=== PATIENT | male | born 1970 | race Asian ===

== ENCOUNTER → 2017-08-15 | Outpatient (CLI) | payer MEDICAID ==
[~2017-08-15] VITALS: Ht 177.8 cm; Wt 91.0 kg
[~2017-08-15] MED LIST: LIDOCAINE HCL 2% 5 ML JELLY TP ONE
[2017-08-15 09:46] VITALS: BP 150/90
== END | disposition home or self-care (01) ==
LOC: HBOWC 09:29
PROVIDERS: ATTEND Surgery Plastic and Reconstructive Surgery
DX: T25.332A Burn of third degree of left toe(s) (nail), initial encounter (principal); S91.105A Unspecified open wound of left lesser toe(s) without damage to nail, initial encounter; X17.XXXA Contact with hot engines, machinery and tools, initial encounter; Y93.55 Activity, bike riding; Y92.89 Other specified places as the place of occurrence of the external cause; Y99.8 Other external cause status; X58.XXXA Exposure to other specified factors, initial encounter; Y93.89 Activity, other specified
CPT/HCPCS: 97597; G0463

== ENCOUNTER → 2017-09-06 | Outpatient (CLI) | payer MEDICAID ==
[~2017-09-06] MED LIST changes: -LIDOCAINE HCL 2% 5 ML JELLY TP ONE; +LIDOCAINE HCL 4% 50 ML SOLUTION TP ONE
[2017-09-06 10:41] VITALS: BP 152/97
[2017-09-06 11:55] VITALS: BP 143/89
== END | disposition home or self-care (01) ==
LOC: HBOWC 10:07
PROVIDERS: ATTEND Emergency Medicine
DX: T25.332D Burn of third degree of left toe(s) (nail), subsequent encounter (principal); T31.0 Burns involving less than 10% of body surface; S91.105D Unspecified open wound of left lesser toe(s) without damage to nail, subsequent encounter; X58.XXXD Exposure to other specified factors, subsequent encounter; X17.XXXD Contact with hot engines, machinery and tools, subsequent encounter
CPT/HCPCS: 11042; 87070; 87147; 87205

== ENCOUNTER → 2017-09-13 | Outpatient (CLI) | payer MEDICAID ==
[~2017-09-13] MED LIST changes: +LIDOCAINE HCL 2% 5 ML JELLY TP ONE; -LIDOCAINE HCL 4% 50 ML SOLUTION TP ONE
[2017-09-13 11:22] VITALS: BP 148/90
== END | disposition home or self-care (01) ==
LOC: HBOWC 10:30
PROVIDERS: ATTEND Emergency Medicine
DX: T25.332D Burn of third degree of left toe(s) (nail), subsequent encounter (principal); S91.102D Unspecified open wound of left great toe without damage to nail, subsequent encounter; X08.8XXD Exposure to other specified smoke, fire and flames, subsequent encounter
CPT/HCPCS: 11042

== ENCOUNTER → 2017-09-29 | Outpatient (CLI) | payer SELFPAY ==
[2017-09-29 12:13] VITALS: BP 161/96
== END | disposition home or self-care (01) ==
LOC: HBOWC 11:57
PROVIDERS: ATTEND Nurse Practitioner Adult Health
DX: T25.332D Burn of third degree of left toe(s) (nail), subsequent encounter (principal); X08.8XXD Exposure to other specified smoke, fire and flames, subsequent encounter

== ENCOUNTER → 2017-10-13 | Outpatient (CLI) | payer SELFPAY ==
[2017-10-13 10:46] VITALS: BP 149/80
== END | disposition home or self-care (01) ==
LOC: HBOWC 10:02
PROVIDERS: ATTEND Nurse Practitioner Adult Health
DX: T25.332D Burn of third degree of left toe(s) (nail), subsequent encounter (principal); S91.105D Unspecified open wound of left lesser toe(s) without damage to nail, subsequent encounter; T31.0 Burns involving less than 10% of body surface; X08.8XXD Exposure to other specified smoke, fire and flames, subsequent encounter